=== PATIENT | male | born 1995 | race Caucasian/White ===

== ENCOUNTER 2016-06-17 16:34 | Emergency (ER) | payer SELFPAY ==
[~2016-06-17] VITALS: Ht 180.3 cm; Wt 68.0 kg
[2016-06-17 17:30] VITALS: BP 137/79
[2016-06-17] MEDS: IBUPROFEN 800 MG TABLET. PO ONE ×2 (18:10→18:55)
--- NOTE | 2016-06-17 18:36 | RAD ---
CT head without contrast Indication: Headache and blurred vision. Axial imaging through the brain was performed without contrast. The ventricles and sulci are within normal limits. No sulcal effacement, midline shift or hemorrhage is detected. The cisterns are patent. The visualized paranasal sinuses are clear. Impression: No acute intracranial process is detected. Electronically signed by: Dustin Anderson MD (Jun 17, 2016 18:34:57)
--- NOTE | 2016-06-17 19:15 | PHYS DOC ---
Past Medical History Past Medical History: No Pertinent History Past Surgical History: Appendectomy Alcohol Use: Occasionally Drug Use: Marijuana Social History Narrative: DENIES USING AT THIS TIME. HX OF USE. Adult General Chief Complaint Chief Complaint: OTHER COMPLAINTS [facility] HPI Patient is a 21 year old male who presents with headache for three days. Denies n/v, photophobia, fever, cough, injury. No interventions prior to arrival. Review of Systems Review of Systems Constitutional: Denies fever or chills Eyes: Denies change in visual acuity, redness, or eye pain HENT: Denies nasal congestion or sore throat Respiratory: Denies cough or shortness of breath Cardiovascular: No additional information not addressed in HPI GI: Denies abdominal pain, nausea, vomiting, bloody stools or diarrhea : Denies dysuria or hematuria Musculoskeletal: Denies back pain or joint pain Integument: Denies rash or skin lesions Neurologic: Denies focal weakness or sensory changes Endocrine: Denies polyuria or polydipsia Current Medications Current Medications Current Medications Medications (Trade) Dose Ordered Sig/Monet Start Time Stop Time Status Last Admin Dose Admin Ibuprofen (Motrin) 800 mg 1X ONCE 06/17/16 18:15 06/17/16 18:16 DC 06/17/16 18:55 800 MG Allergies Allergies Allergies Coded Allergies Type Severity Reaction Last Updated Verified No Known Drug Allergies 12/25/14 No Physical Exam Physical Exam Constitutional: Well developed, well nourished, no acute distress, non-toxic appearance. HENT: Normocephalic, atraumatic, bilateral external ears normal, oropharynx moist, no oral exudates, nose normal. Eyes: PERRLA, EOMI, conjunctiva normal, no discharge. Neck: Normal range of motion, no tenderness, supple, no stridor. Cardiovascular:Heart rate regular rhythm, no murmur Lungs & Thorax: Bilateral breath sounds clear to auscultation Abdomen: Bowel sounds normal, soft, no tenderness, no masses, no pulsatile masses. Skin: Warm, dry, no erythema, no rash. Back: No tenderness, no CVA tenderness. Extremities: No tenderness, no cyanosis, no clubbing, ROM intact, no edema. Neurologic: Alert and oriented X 3, normal motor function, normal sensory function, no focal deficits noted. Psychologic: Affect normal, judgement normal , mood normal. [] Current Patient Data Vital Signs Vital Signs Date Time Temp Pulse Resp B/P Pulse Ox O2 Delivery O2 Flow Rate FiO2 06/17/16 17:30 98.4 74 18 96 Room Air 98.4 EKG EKG [] Radiology/Procedures Radiology/Procedures [] Impressions: 1. Headache Course & Med Decision Making Course & Med Decision Making Pertinent Labs and Imaging studies reviewed. (See chart for details) [] Dragon Disclaimer Dragon Disclaimer This electronic medical record was generated, in whole or in part, using a voice recognition dictation system. Departure Departure Impression: Primary Impression: Headache Disposition: 01 HOME, SELF-CARE Condition: STABLE Referrals: NO PCP (PCP) MARIA DEL ROSARIO FLORES MD Patient Instructions: General Headache Without Cause, [id number] Additional Instructions: Follow up in 1-2 days. Return if problems or concerns. May take over the counter medication as directed Scripts No Active Prescriptions or Reported Meds HARRY MCALLISTER APRN Jun 17, 2016 19:15
== END 2016-06-17 19:29 | disposition home or self-care (01) ==
LOC: ER 16:34
DX: R51 Headache (principal); F12.10 Cannabis abuse, uncomplicated
CPT/HCPCS: 70450; 99284-25

== ENCOUNTER 2020-10-01 11:25 | Emergency (ER) | payer SELFPAY ==
[~2020-10-01] VITALS: Ht 177.8 cm; Wt 88.0 kg
[2020-10-01] MEDS: LIDO:MAALOX 1:1 20 ML SINGLE DOSE. SWSW ONE (13:36)
[2020-10-01] MEDS: IV NORMAL SALINE 1000ML BAG 1,000 ML IV SCH (13:37)
[2020-10-01] MEDS: METOCLOPRAMIDE HCL 10 MG/2 ML VIAL. IVP ONE (13:43)
--- NOTE | 2020-10-01 13:54 | RAD ---
Site ID: [id number] EXAMINATION: XR CHEST 1V. HISTORY: 25 years Male Reason: CHEST PAIN / Spl. Instructions: / History: . . COMPARISON: None. Findings: The lungs are clear. The heart size is normal. There is no effusion or pneumothorax. The mediastinum and chelsea appear unremarkable. Impression: Unremarkable study. Electronically signed by: Hossein Bush MD (10/01/2020 1:51 PM) [id number]
[2020-10-01 14:02] LABS: BASO # 0.1 x10^3/uL (0.0-0.2); BASO % 1 % (0-3); EOS # 0.3 x10^3/uL (0.0-0.7); EOS % 4 % (0-3); HEMATOCRIT 43.7 % (39.0-53.0); HEMOGLOBIN 15.2 g/dL (13.0-17.5); LYMPH # 2.2 x10^3/uL (1.0-4.8); LYMPH % 35 % (24-48); MEAN CORPUSCULAR HEMOGLOBIN 30 pg (25-35); MEAN CORPUSCULAR HGB CONC 35 g/dL (31-37); MEAN CORPUSCULAR VOLUME 88 fL (79-100); MONO # 0.6 x10^3/uL (0.0-1.1); MONO % 10 % (0-9); NEUT # 3.2 x10^3/uL (1.8-7.7); NEUT % 50 % (31-73); PLATELET COUNT 220 x10^3/uL (140-400); RED BLOOD COUNT 4.99 x10^6/uL (4.30-5.70); RED CELL DISTRIBUTION WIDTH 13.2 % (11.5-14.5); WHITE BLOOD COUNT 6.3 x10^3/uL (4.0-11.0)
[2020-10-01 14:11] LABS: CALCIUM 8.7 mg/dL (8.5-10.1); CREATININE 0.9 mg/dL (0.7-1.3); GFR 101.2
--- NOTE | 2020-10-01 14:13 | PHYS DOC ---
Past Medical History Past Medical History: No Pertinent History Past Surgical History: Appendectomy Smoking Status: Current Every Day Smoker Alcohol Use: Occasionally Drug Use: Marijuana General Adult EDM: Chief Complaint: HEARTBURN/GI DISTRESS HPI: HPI: Patient is a 25 year old male who presents with today began having burning in his epigastric abdomen with some nausea and has gone straight up his esophagus and into his throat. He states he feels like he is going to vomit fire. He states he did not eat anything out of the ordinary. He states that he got really angry over the weekend and it got worse. He stated that he took Pepcid yesterday but has not helped. Patient denies vomiting, chest pain, shortness of breath, fever, cough, diarrhea, back pain, dizziness, headache. Patient is rating his epigastric discomfort at a 7 out of 10. Review of Systems: Review of Systems: Constitutional: Denies fever or chills. [] Eyes: Denies change in visual acuity. [] HENT: Denies nasal congestion or sore throat. [] Respiratory: Denies cough or shortness of breath. [] Cardiovascular: + Chest chest pain or denies edema. [] GI: + Epigastric abdominal pain, +nausea, denies vomiting, bloody stools or diarrhea. [] : Denies dysuria. [] Musculoskeletal: Denies back pain or joint pain. [] Integument: Denies rash. [] Neurologic: Denies headache, focal weakness or sensory changes. [] Endocrine: Denies polyuria or polydipsia. [] Lymphatic: Denies swollen glands. [] Psychiatric: Denies depression or anxiety. [] Heart Score: C/O Chest Pain: Yes HEART Score for Chest Pain: HEART Score for Chest Pain Response (Comments) Value History Slighlty/Non-Suspicious 0 ECG Normal 0 Age < 45 0 Risk Factors 1 or 2 Risk Factors 1 Troponin < Normal Limit 0 Total 1 Risk Factors: Risk Factors: DM, Current or recent (<one month) smoker, HTN, HLP, family hi story of CAD, obesity. Risk Scores: Score 0 - 3: 2.5% MACE over next 6 weeks - Discharge Home Score 4 - 6: 20.3% MACE over next 6 weeks - Admit for Clinical Observation Score 7 - 10: 72.7% MACE over next 6 weeks - Early Invasive Strategies Current Medications: Current Medications Medications (Trade) Dose Ordered Sig/Monet Start Time Stop Time Status Last Admin Dose Admin Metoclopramide HCl (Reglan Vial) 10 mg 1X ONCE 10/01/20 13:30 10/01/20 13:31 DC 10/01/20 13:43 10 MG Multi-Ingredient Mouthwash/Gargle (Gi Cocktail) 20 ml 1X ONCE 10/01/20 13:30 10/01/20 13:31 DC 10/01/20 13:36 20 ML Sodium Chloride 1,000 ml @ 1,000 mls/hr Q1H 10/01/20 13:30 10/01/20 14:29 10/01/20 13:37 1,000 MLS/HR Allergies: Allergies: Allergies Coded Allergies Type Severity Reaction Last Updated Verified No Known Drug Allergies 12/25/14 No Physical Exam: PE: Constitutional: Well developed, well nourished, no acute distress, non-toxic appearance. [] HENT: Normocephalic, atraumatic, bilateral external ears normal, oropharynx moist, no oral exudates, nose normal. [] Eyes: PERRLA, EOMI, conjunctiva normal, no discharge. [] Neck: Normal range of motion, no tenderness, supple, no stridor. [] Cardiovascular:Heart rate regular rhythm, no murmur [] Lungs & Thorax: Bilateral breath sounds clear to auscultation [] Abdomen: Bowel sounds normal, soft, no tenderness, no masses, no pulsatile masses. [] Skin: Warm, dry, no erythema, no rash. [] Back: No tenderness, no CVA tenderness. [] Extremities: No tenderness, no cyanosis, no clubbing, ROM intact, no edema. [] Neurologic: Alert and oriented X 3, normal motor function, normal sensory function, no focal deficits noted. [] Psychologic: Affect normal, judgement normal, mood normal. Normal physical exam [] Current Patient Data: Labs: Laboratory Tests Test 10/01/20 13:44 White Blood Count 6.3 x10^3/uL (4.0-11.0) Red Blood Count 4.99 x10^6/uL (4.30-5.70) Hemoglobin 15.2 g/dL (13.0-17.5) Hematocrit 43.7 % (39.0-53.0) Mean Corpuscular Volume 88 fL (79-100) Mean Corpuscular Hemoglobin 30 pg (25-35) Mean Corpuscular Hemoglobin Concent 35 g/dL (31-37) Red Cell Distribution Width 13.2 % (11.5-14.5) Platelet Count 220 x10^3/uL (140-400) Neutrophils (%) (Auto) 50 % (31-73) Lymphocytes (%) (Auto) 35 % (24-48) Monocytes (%) (Auto) 10 % (0-9) H Eosinophils (%) (Auto) 4 % (0-3) H Basophils (%) (Auto) 1 % (0-3) Neutrophils # (Auto) 3.2 x10^3/uL (1.8-7.7) Lymphocytes # (Auto) 2.2 x10^3/uL (1.0-4.8) Monocytes # (Auto) 0.6 x10^3/uL (0.0-1.1) Eosinophils # (Auto) 0.3 x10^3/uL (0.0-0.7) Basophils # (Auto) 0.1 x10^3/uL (0.0-0.2) Laboratory Tests 10/01/20 13:44 Vital Signs: Vital Signs Date Time Temp Pulse Resp B/P (MAP) Pulse Ox O2 Delivery O2 Flow Rate FiO2 10/01/20 13:00 98.5 69 18 128/85 (99) 99 Room Air 98.5 EKG: EK and read by Dr. Moore is sinus rhythm and no STEMI [] Radiology/Procedures: Radiology/Procedures: [] Impression: [facility] [address] [place] [address] IMAGING REPORT Signed PATIENT: JULIA MENDOZA AACCOUNT: [id number] : 1995 LOCATION: ER AGE: 25 SEX: M EXAM STATUS: REG ER ORD. PHYSICIAN: CRESCENCIO GREWAL APRN REASON: CHEST PAIN PROCEDURE: PORTABLE CHEST 1V Site ID: [id number] EXAMINATION: XR CHEST 1V. HISTORY: 25 years Male Reason: CHEST PAIN / Spl. Instructions: / History: . . COMPARISON: None. Findings: The lungs are clear. The heart size is normal. There is no effusion or pneumothorax. The mediastinum and chelsea appear unremarkable. Impression: Unremarkable study. Electronically signed by: Mac Bush MD (10/01/2020 1:51 PM) [id number] DICTATED and SIGNED BY: MAC BUSH MD DATE: 10/01/20 [id number] Course & Med Decision Making: Course & Med Decision Making Pertinent Labs and Imaging studies reviewed. (See chart for details) See HPI. Alert and oriented x4. Ambulatory with a steady gait. Speaks in full clear sentences. Abdomen is soft and nontender. Pain cannot be reproduced with palpation. Vital signs are within normal limits. EKG shows sinus rhythm and no STEMI. He is given a GI cocktail, Reglan in the ED. chest x-ray showed no acute findings. Blood work unremarkable. Chest x-ray unremarkable. Patient to follow-up with a primary care provider soon as possible. Patient states he is feeling much better after GI cocktail and Reglan. [] Dragon Disclaimer: Dragon Disclaimer: This electronic medical record was generated, in whole or in part, using a voice recognition dictation system. Departure Departure Impression: Primary Impression: Epigastric pain Disposition: HOME / SELF CARE / HOMELESS Condition: STABLE Referrals: NO PCP (PCP) Patient Instructions: Diet for Gastroesophageal Reflux Disease, Adult, Gastroesophageal Reflux Disease, Adult Additional Instructions: Follow-up with your primary care provider soon as possible. Take medication as prescribed and with food. Again watch what kind of food you eat and try to stay away from spicy, fried or caffeinated beverages. Scripts Famotidine (PEPCID) 20 Mg Tablet 20 MG PO BID for 14 Days, #28 TAB Prov: CRESCENCIO GREWAL COMPUTER PROGRAMMING MANAGER 10/01/20 Ondansetron (ONDANSETRON ODT) 4 Mg Tab.rapdis 1 TAB PO PRN Q6-8HRS, #16 TAB Prov: CRESCENCIO GREWAL COMPUTER PROGRAMMING MANAGER 10/01/20 CRESCENCIO GREWAL COMPUTER PROGRAMMING MANAGER October 01, 2020 14:13
[2020-10-01 14:17] LABS: ALBUMIN 3.9 g/dL (3.4-5.0); ALBUMIN/GLOBULIN RATIO 1.1 (1.0-1.7); TOTAL BILIRUBIN 0.5 mg/dL (0.2-1.0); TOTAL PROTEIN 7.5 g/dL (6.4-8.2)
[2020-10-01 15:07] LABS: AMPHETAMINE/METHAMPHETAMINE NEG (NEG); BARBITURATES NEG (NEG); BENZODIAZEPINES NEG (NEG); CANNABINOIDS NEG (NEG); COCAINE NEG (NEG); METHADONE NEG (NEG); OPIATES NEG (NEG); PHENCYCLIDINE NEG (NEG)
[2020-10-01] MEDS ORDERED: ONDA4TAB12 PO (15:30)
[2020-10-01] MEDS ORDERED: FAMO-63 PO (15:30)
[2020-10-01 15:31] VITALS: BP 119/64
--- NOTE | 2020-10-01 15:49 | EKG ---
[facility] [address] [place] [address] Test Date: 2020-10-01 Test Time: 13:06:19 Pat Name: JULIA MENDOZA Department: Room: Gender: M Coordinator Of Evaluation: : 1995 Requested By: CRESCENCIO GREWAL Order Number: [id number] Reading MD: Measurements Intervals [place] Rate: 68 P: 32 NM: 146 QRS: 22 QRSD: 90 T: 11 QT: 344 QTc: 370 Interpretive Statements SINUS RHYTHM OTHERWISE NORMAL ECG RI6.02 No previous ECG available for comparison
== END 2020-10-01 15:45 | disposition home or self-care (01) ==
LOC: ER 11:25
DX: R10.13 Epigastric pain (principal); R11.0 Nausea; R07.89 Other chest pain; F17.200 Nicotine dependence, unspecified, uncomplicated; Z90.89 Acquired absence of other organs
CPT/HCPCS: 36415; 71045; 80053; 80307; 83690; 83880; 84484; 85025; 93005; 96361; 96374; 99285; J2765; J7030